=== PATIENT | male | born 1965 | race Caucasian/White ===

== ENCOUNTER 2017-05-09 19:50 | Observation (INO) | payer OTHER ==
[~2017-05-09] VITALS: Ht 180.3 cm; Wt 85.9 kg
[2017-05-09] VITALS (11 sets, daily range): BP systolic 135–189; BP diastolic 78–102; PULSE 74–105; RESP 16–20; TEMP 98.2–98.3; O2SAT 95–97
[~2017-05-09 19:50] MED LIST: NORV10TA PO; ROSU20 PO
[2017-05-09 20:30] LABS: AUTOMATED NEUTROPHIL # 8.6 TH/MM3 (1.8-7.7); BASOPHIL # 0.3 TH/MM3 (0-0.2); EOSINOPHIL # 0.1 TH/MM3 (0-0.4); EOSINOPHIL % 0.6 % (0.0-4.0); HEMATOCRIT 47.3 % (39.0-51.0); LYMPH % 15.1 % (9.0-44.0); LYMPHOCYTE # 1.7 TH/MM3 (1.0-4.8); MEAN CELL VOLUME 87.6 FL (80.0-100.0); MEAN CORPUSCULAR HEMOGLOBIN 30.2 PG (27.0-34.0); MEAN CORPUSCULAR HGB CONC 34.5 % (32.0-36.0); MONO % 5.3 % (0.0-8.0); PLATELET COUNT 324 TH/MM3 (150-450); RED CELL DISTRIBUTION WIDTH 11.6 % (11.6-17.2); WHITE BLOOD COUNT 11.3 TH/MM3 (4.0-11.0)
[2017-05-09] MEDS ORDERED: ASPIRIN 325 MG TAB PO ONE (20:30)
[2017-05-09] MEDS ORDERED: NITROGLYCERIN 0.4 MG SL 25 TABS/BTL SL PRN (20:30)
[2017-05-09] MEDS ORDERED: SODIUM CHLORIDE 0.9% FLUSH 10 ML FLUSH IVF PRN (20:30)
[2017-05-09 20:32] LABS: HEMO FLAGS DIFF FINAL
--- NOTE | 2017-05-09 20:35 | PD ---
HPI Chief Complaint: Chest Pain Time Seen by Provider: 20:10 Travel History International Travel<30 days: No Contact w/Intl Traveler<30days: No Traveled to known affect area: No History of Present Illness HPI 52yo M with PMH of HTN, HLD presents to the ED with c/o midsternal chest pressure today. States it is intermittent, lasting hours at a time. It is nonradiating and exertion does not exacerbate it. Also not related to food intake. Denies any sob. States he checked his blood pressure and it was high. Had mild left sided headache. Pt had recent increased in his amlodipine dose by Dr. Neil. Pt's mortar man is Dr. Niño and last cardiac stress test was in 11/2013 as per our record and it was negative. Denies any fever, visual changes, sob, n/v, abdominal pain, focal weakness or numbness. Does have a mild headache and is very nervous about his elevated blood pressure. Denies any cig smoking. PFSH Past Medical History Heart Rhythm Problems: No Cardiac Catheterization: No Cardiovascular Problems: No High Cholesterol: Yes Congestive Heart Failure: No Diabetes: No Diminished Hearing: No Hypertension: Yes Past Surgical History Coronary Artery Bypass Graft: No Other Surgery: Yes (MASS REMOVED FROM L SHOULDER) Social History Alcohol Use: Yes (OCCASIONALLY) Tobacco Use: No Substance Use: No Allergies-Medications (Allergen,Severity, Reaction): Coded Allergies: No Known Allergies (Verified , 05/09/17) Reported Meds & Prescriptions Reported Meds & Active Scripts Active Reported Crestor (Rosuvastatin Calcium) 5 Mg Tab 5 Mg PO DAILY Amlodipine (Amlodipine Besylate) 10 Mg Tab 10 Mg PO DAILY Review of Systems Except as stated in HPI: all other systems reviewed are Neg Physical Exam Narrative GENERAL: 52yo M in mild distress. SKIN: Focused skin assessment warm/dry. HEAD: Atraumatic. Normocephalic. EYES: Pupils equal and round at 3mm bilaterally. EOMI. No scleral icterus. No injection or drainage. ENT: No nasal bleeding or discharge. Mucous membranes pink and moist. NECK: Trachea midline. No JVD. No nuchal rigidity. CARDIOVASCULAR: Regular rate and rhythm. No murmur appreciated. RESPIRATORY: No accessory muscle use. Clear to auscultation. Breath sounds equal bilaterally. GASTROINTESTINAL: Abdomen soft, non-tender, nondistended. No rebound tenderness or guarding. MUSCULOSKELETAL: No obvious deformities. No clubbing. No cyanosis. No edema. NEUROLOGICAL: Awake and alert. No obvious cranial nerve deficits. Motor grossly within normal limits. Normal speech. PSYCHIATRIC: Appropriate mood and affect; insight and judgment normal. Data Data Last Documented VS Vital Signs Date Time Temp Pulse Resp B/P Pulse Ox O2 Delivery O2 Flow Rate FiO2 05/09/17 20:28 94 20 178/102 95 05/09/17 20:20 Room Air 05/09/17 19:56 98.2 Orders Basic Metabolic Panel (Bmp) (05/09/17 20:19) Complete Blood Count With Diff (05/09/17 20:19) Magnesium (Mg) (05/09/17 20:19) Prothrombin Time / Inr (Pt) (05/09/17 20:19) Act Partial Throm Time (Ptt) (05/09/17 20:19) Troponin I (05/09/17 20:19) Chest, Single Ap (05/09/17 20:19) Ecg Monitoring (05/09/17 20:19) Bilateral Bp Monitoring (05/09/17 20:19) Iv Access Insert/Monitor (05/09/17 20:19) Oximetry (05/09/17 20:19) Oxygen Administration (05/09/17 20:19) Sodium Chloride 0.9% Flush (Ns Flush) (05/09/17 20:30) Nitroglycerin Sl (Nitrostat Sl) (05/09/17 20:30) Aspirin (Aspirin) (05/09/17 20:30) Acetaminophen (Tylenol) (05/09/17 20:45) Electrocardiogram (05/09/17 20:12) Labs Laboratory Tests Test 05/09/17 20:10 White Blood Count 11.3 TH/MM3 Red Blood Count 5.40 MIL/MM3 Hemoglobin 16.3 GM/DL Hematocrit 47.3 % Mean Corpuscular Volume 87.6 FL Mean Corpuscular Hemoglobin 30.2 PG Mean Corpuscular Hemoglobin 34.5 % Concent Red Cell Distribution Width 11.6 % Platelet Count 324 TH/MM3 Mean Platelet Volume 7.9 FL Neutrophils (%) (Auto) 76.0 % Lymphocytes (%) (Auto) 15.1 % Monocytes (%) (Auto) 5.3 % Eosinophils (%) (Auto) 0.6 % Basophils (%) (Auto) 3.0 % Neutrophils # (Auto) 8.6 TH/MM3 Lymphocytes # (Auto) 1.7 TH/MM3 Monocytes # (Auto) 0.6 TH/MM3 Eosinophils # (Auto) 0.1 TH/MM3 Basophils # (Auto) 0.3 TH/MM3 CBC Comment DIFF FINAL Differential Comment Prothrombin Time 10.7 SEC Prothromb Time International 1.0 RATIO Ratio Activated Partial 28.0 SEC Thromboplast Time Sodium Level 138 MEQ/L Potassium Level 3.5 MEQ/L Chloride Level 104 MEQ/L Carbon Dioxide Level 27.0 MEQ/L Anion Gap 7 MEQ/L Blood Urea Nitrogen 15 MG/DL Creatinine 0.97 MG/DL Estimat Glomerular Filtration 81 ML/MIN Rate Random Glucose 96 MG/DL Calcium Level 9.7 MG/DL Magnesium Level 2.1 MG/DL Troponin I LESS THAN 0.02 NG/ML MDM Medical Decision Making Medical Screen Exam Complete: Yes Emergency Medical Condition: Yes Interpretation(s) EKG: NSR 91bpm. Normal axis. Q wave III, unchanged from EKG from 2014. No ST segment elevation. Differential Diagnosis ACS vs. GERD vs. pneumonia vs. anxiety Narrative Course 52yo M with intermittent midsternal chest pain. Labs reviewed, mild leukocytosis at 11.3. Troponin negative. CXR showed normal examination. Pt given aspirin 325mg PO and sublingual nitroglycerin. Pt reevaluated at bedside and states he feels better and chest pain is now about a 1 out of 10. Headache resolved. Pt has risk factors including HTN and HLD and has not seen Dr. Niño since 2013. Will admit for chest pain center for serial EKG and cardiac enzymes. Discussed with Dr. Arredondo and accepted to her service. Diagnosis Primary Impression: Chest pain Qualified Code: R07.9 - Chest pain, unspecified type Admitting Information Admitting Physician Requests: Gudelia Pimentel DO May 09, 2017 20:34
[2017-05-09 20:38] LABS: CHLORIDE 104 MEQ/L (98-107); POTASSIUM 3.5 MEQ/L (3.5-5.1); SODIUM (NA) 138 MEQ/L (136-145)
[2017-05-09 20:41] LABS: ANION GAP 7 MEQ/L (5-15); BLOOD UREA NITROGEN 15 MG/DL (7-18); MAGNESIUM 2.1 MG/DL (1.5-2.5)
[2017-05-09 20:42] LABS: PROTHROMBIN TIME - PATIENT 10.7 SEC (9.8-11.6)
[2017-05-09 20:44] LABS: GLOMERULAR FILTRATION RATE 81 ML/MIN (>89)
[2017-05-09] MEDS ORDERED: ACETAMINOPHEN 325 MG TAB PO ONE (20:45)
--- NOTE | 2017-05-09 20:45 | RADRPT ---
EXAM DATE/TIME: 05/09/2017 20:27 [facility] COMPARISON: CHEST SINGLE AP, December 16, 2013, 12:23. INDICATIONS : Chest pain. MEDICAL HISTORY : None. SURGICAL HISTORY : None. ENCOUNTER: Initial ACUITY: 1 day PAIN SCORE: 5/10 LOCATION: Bilateral chest FINDINGS: A single view of the chest demonstrates the lungs to be symmetrically aerated without evidence of mas s, infiltrate or effusion. The cardiomediastinal contours are unremarkable. Osseous structures are intact. CONCLUSION: Normal examination. Britton Salazar MD on May 09, 2017 at 20:40 Board Certified Radiologist. This report was verified electronically.
[2017-05-09] MEDS ORDERED: AMLO10TA2 PO (21:04)
[2017-05-09] MEDS ORDERED: ROSU5 PO (21:04)
[2017-05-09] MEDS ORDERED: SODIUM CHLORIDE 0.9% FLUSH 10 ML FLUSH IV FLUSH PRN (21:45)
[2017-05-09 23:27] LABS: CREATINE KINASE 114 U/L (39-308)
[2017-05-09 23:39] LABS: CKMB 0.7 NG/ML (0.5-3.6)
[2017-05-10] VITALS: BP 136/84; PULSE 72; RESP 18; TEMP 96.4; O2SAT 96
[2017-05-10 00:20] VITALS: O2SAT 95
[2017-05-10 03:18] LABS: CREATINE KINASE 107 U/L (39-308)
[2017-05-10 03:30] LABS: CKMB 0.6 NG/ML (0.5-3.6)
[2017-05-10 04:00] VITALS: BP 148/96; PULSE 78; RESP 18; TEMP 97.2; O2SAT 97
[2017-05-10 05:10] VITALS: BP 148/96
[2017-05-10 08:00] VITALS: BP 158/104; PULSE 72; PULSE 96; RESP 20; TEMP 98.5; O2SAT 96
--- NOTE | 2017-05-10 08:44 | HHI.HP ---
HPI Service [facility] Primary Care Physician Manuel Vaughan MD Admission Diagnosis Chest pain Diagnoses: (1) Chest pain Diagnosis: Principal (2) Hypertension Diagnosis: Secondary (3) Hyperlipidemia Diagnosis: Secondary Chief Complaint: Chest tightness, elevated blood pressure Travel History International Travel<30 Days: No Contact w/Intl Traveler <30 Da: No Traveled to Known Affected Are: No History of Present Illness Written by Nitish Harris, acting as scribe for Dr. Carl on 05/10/17 at 08: 44. 52-year-old male with known history of hypertension, hyperlipidemia who presented to hospital because of chest tightness and elevated blood pressure. Patient states that he has been treated by Dr. Neil in outpatient setting for his hypertension. His blood pressure has been running high and he said his medications increased to amlodipine 10 mg daily on Sunday. Patient blood pressure has continuously been running high and he went to work yesterday and just did not feel right. He had tightness in his chest that was 2 /10 on a pain scale which remained constant throughout the day with some mild lightheadedness and dizziness. He denied any nausea, vomiting, shortness of breath, dyspnea, diaphoresis. His friend is Dr. Lynn that works in emergency department and he spoke with him and was recommended to come to the hospital for evaluation. Patient presented to the emergency department and initially had accelerated hypertension 189/99. Blood pressure did improve on its own without any treatment down to 135/81. The patient has had previous stress test to include exercise stress test and nuclear stress test that was done in 2013 in both which were negative. Patient was evaluated by the ER physician who recommended that the patient be observed and chest pain center. Review of Systems Cardiovascular: COMPLAINS OF: Chest pain Except as stated in HPI: all other systems reviewed are Neg Past Family Social History Past Medical History Hypertension Hyperlipidemia Past Surgical History Mass removed from left shoulder Reported Medications Reported Meds & Active Scripts Active Reported Crestor (Rosuvastatin Calcium) 5 Mg Tab 5 Mg PO DAILY Amlodipine (Amlodipine Besylate) 10 Mg Tab 10 Mg PO DAILY Allergies: Coded Allergies: No Known Allergies (Verified , 05/09/17) Family History Reviewed is significant for mother still alive at age 82 with high blood pressure, father still alive at age 82 with prostate cancer and urinary cancer Social History Patient denies any tobacco, alcohol or illicit drugs Physical Exam Vital Signs Vital Signs Date Time Temp Pulse Resp B/P Pulse Ox O2 Delivery O2 Flow Rate FiO2 05/10/17 05:10 148/96 05/10/17 04:00 97.2 78 18 148/96 97 05/10/17 00:20 95 21 05/10/17 00:00 96.4 72 18 136/84 96 05/09/17 23:45 74 05/09/17 22:35 98.3 78 16 135/81 95 Room Air 05/09/17 22:05 82 16 141/82 95 Room Air 05/09/17 21:35 84 18 160/78 95 Room Air 05/09/17 21:04 90 18 154/90 95 Room Air 05/09/17 20:59 88 18 169/88 96 Room Air 05/09/17 20:30 Room Air 05/09/17 20:30 88 18 172/99 95 Room Air 05/09/17 20:28 94 20 178/102 95 05/09/17 20:20 87 18 165/101 95 Room Air 168/96 05/09/17 20:10 97 Room Air 05/09/17 20:10 97 Room Air 05/09/17 19:56 98.2 105 18 189/99 97 Physical Exam GENERAL: Well-developed, well-nourished, in no acute distress. alert and orientated HEENT: Head is normocephalic without any lesions or masses noted. Facial features are symmetric. Eyes: Pupils equal round reactive to light. Extraocular muscles are intact. Conjunctivae were clear. Oropharyngeal: Pharynx without any erythema edema. Tongue is midline without deviation. Buccal mucosa is moist without any masses or lesions NECK: Supple without any masses. Trachea midline no deviation. No JVD, no bruits are appreciated CARDIAC: Regular rhythm, regular rate. S1/S2 are heard. No murmurs gallops or rubs. LUNGS: Clear to auscultation bilaterally. No wheeze, rhonchi or rales. No use of accessory muscles on inspiration or expiration. ABDOMEN: Soft, nontender. Nondistended. Bowel sounds heard in all 4 quadrants. No organomegaly or masses. Negative rebound, negative guarding EXTREMITIES: No edema, pulses are equal bilaterally. No cyanosis or clubbing NEUROLOGY: Mood and affect appear appropriate. Cranial nerves II through XII grossly intact. Muscle strength 5/5 in upper and lower extremities bilaterally. Deep tendon reflexes are 2+ in upper and lower extremities bilaterally. Laboratory Laboratory Tests Test 05/09/17 05/09/17 05/10/17 20:10 23:05 02:20 White Blood Count 11.3 Red Blood Count 5.40 Hemoglobin 16.3 Hematocrit 47.3 Mean Corpuscular Volume 87.6 Mean Corpuscular Hemoglobin 30.2 Mean Corpuscular Hemoglobin 34.5 Concent Red Cell Distribution Width 11.6 Platelet Count 324 Mean Platelet Volume 7.9 Neutrophils (%) (Auto) 76.0 Lymphocytes (%) (Auto) 15.1 Monocytes (%) (Auto) 5.3 Eosinophils (%) (Auto) 0.6 Basophils (%) (Auto) 3.0 Neutrophils # (Auto) 8.6 Lymphocytes # (Auto) 1.7 Monocytes # (Auto) 0.6 Eosinophils # (Auto) 0.1 Basophils # (Auto) 0.3 CBC Comment DIFF FINAL Differential Comment Prothrombin Time 10.7 Prothromb Time International 1.0 Ratio Activated Partial 28.0 Thromboplast Time Sodium Level 138 Potassium Level 3.5 Chloride Level 104 Carbon Dioxide Level 27.0 Anion Gap 7 Blood Urea Nitrogen 15 Creatinine 0.97 Estimat Glomerular Filtration 81 Rate Random Glucose 96 Calcium Level 9.7 Magnesium Level 2.1 Troponin I LESS THAN 0.02 LESS THAN 0.02 LESS THAN 0.02 Total Creatine Kinase 114 107 Creatine Kinase MB 0.7 0.6 Result Diagram: 05/09/17200905/09/172009 Imaging Last Impressions Chest X-Ray 05/09/172018 Signed Impressions: Service Date/Time: Tuesday, May 09, 2017 20:27 - CONCLUSION: Normal examination. Britton Salazar MD Assessment and Plan Problem List: (1) Chest pain ICD Code: R07.9 Status: Acute (2) Hypertension ICD Code: I10 Status: Acute (3) Hyperlipidemia ICD Code: E78.5 Status: Acute Assessment and Plan Chest pain, atypical Patient with increased risk factors include hypertension, hyperlipidemia, family history of heart disease. Patient has been ruled out for acute coronary event with serial cardiac enzymes that are negative, serial EKG shows sinus rhythm with Q waves in lead III without any changes, possible old inferior infarct We'll pursue exercise stress test rule out any underlying ischemia Continue aspirin and nitroglycerin as needed Exercise stress test was performed and was negative. Hypertension, uncontrolled Resume patient's home medications Blood pressure improved today Discussed with his primary doctor who recommended continuation of his present blood pressure management. He would like the patient see him in his office tomorrow morning at 11 AM for blood pressure check and possible medication adjustment. Hyperlipidemia Resume statin DVT prevention Low risk, early ambulation This note was transcribed by sea Harris. I, Dr. Clement Carl personally performed the history, physical exam, and medical decision making; and confirmed the accuracy of the information in the transcribed note. Authenticated by Dr. Clement Carl on 05/10/17 at 08:49. Discharge disposition Discharge home in stable condition if stress test is negative Activity: Ad doug. Diet: Healthy heart diet Medications per medication reconciliation Follow-up primary medical doctor in one week Code Status Full code Discussed Condition With Patient Problem Qualifiers (1) Chest pain: Qualified Code: R07.9 - Chest pain, unspecified type (2) Hypertension: Qualified Code: I10 - Hypertension, unspecified type (3) Hyperlipidemia: Qualified Code: E78.5 - Hyperlipidemia, unspecified hyperlipidemia type Nitish Harris May 10, 2017 08:44 Clement Carl MD May 10, 2017 08:44
[2017-05-10] MEDS ORDERED: SODIUM CHLORIDE 0.9% FLUSH 10 ML FLUSH IV FLUSH SCH (09:00)
[2017-05-10 09:01] VITALS: O2SAT 95
[2017-05-10] MEDS ORDERED: ATORVASTATIN 10 MG TAB PO SCH (09:15)
--- NOTE | 2017-05-10 10:13 | HHI.DCPOC ---
Discharge Care Plan Diagnosis: (1) Chest pain (2) Hypertension Goals to Promote Your Health * To prevent worsening of your condition and complications * To maintain your health at the optimal level Directions to Meet Your Goals Take your medications as prescribed Follow your dietary instruction Follow activity as directed Keep your appointments as scheduled Take your immunizations and boosters as scheduled If your symptoms worsen call your PCP, if no PCP go to Urgent Care Center or Emergency Room Smoking is Dangerous to Your Health. Avoid second hand smoke Call the 24-hour hour crisis hotline for domestic abuse at Nitish Harris May 10, 2017 10:13
--- NOTE | 2017-05-10 14:51 | TR ---
Date Performed: 05/10/2017 Time Performed: 09:40:52 DOCTOR: Juan Kaba DRUG LIST: CLINICAL HISTORY: REASON FOR TEST: REASON FOR ENDING: Completed Protocol OBSERVATION: Chest Pain: None CONCLUSION: Patient tolerated LU protocol with Total Exercise Time=7:24 Maximum RA=755 % Max HR Achieved=96.0% Maximum IV=578/90, Testing stopped secondary to goals acheived. Patient reached tar get HR. During peak exercise, patient was asymptomatic, quick upsloping ST segment, No significant ST depressions. HR and BP responded appropriately to exercise. Recovery period, HR and BP returned to b aseline COMMENTS: Conclusion: Normal treadmill exercise. No evidence of ischemia.
--- NOTE | 2017-05-10 14:59 | EKG ---
Date Performed: 05/10/2017 Time Performed: 02:59:35 PTAGE: 52 years EKG: Sinus rhythm Normal ECG PREVIOUS TRACING : 05/09/2017 23.13 Since previous tracing, no significant change noted DOCTOR: Juan Kaba Interpretating Date/Time 05/10/2017 14:59:01
--- NOTE | 2017-05-10 15:07 | EKG ---
Date Performed: 05/09/2017 Time Performed: 23:13:44 PTAGE: 52 years EKG: Sinus rhythm MODERATE INTRAVENTRICULAR CONDUCTION DELAY BORDERLINE ECG PREVIOUS TRACING : 05/09/2017 20.12 Since previous tracing, no significant change noted DOCTOR: Juan Kaba Interpretating Date/Time 05/10/2017 15:07:10
--- NOTE | 2017-05-10 15:13 | EKG ---
Date Performed: 05/09/2017 Time Performed: 20:12:47 PTAGE: 52 years EKG: Sinus rhythm Normal ECG PREVIOUS TRACING : 12/16/2013 18.26 Since previous tracing, no significant change noted DOCTOR: Juan Kaba Interpretating Date/Time 05/10/2017 15:11:03
== END 2017-05-10 12:30 | disposition home or self-care (01) ==
LOC: PHED 19:50 → PHEDA 21:49 → PH3A 23:24
PROVIDERS: ADMIT Hospitalist; ATTEND Hospitalist
DX: R07.89 Other chest pain (principal); E78.5 Hyperlipidemia, unspecified; I10 Essential (primary) hypertension; Z82.49 Family history of ischemic heart disease and other diseases of the circulatory system; D72.829 Elevated white blood cell count, unspecified; E78.00 Pure hypercholesterolemia, unspecified; Z79.899 Other long term (current) drug therapy
CPT/HCPCS: 71010; 80048; 82550; 82552; 83735; 84484; 85025; 85610; 85730; 93005; 93017; 99285; G0378